=== PATIENT | male | born 1975 | race Hispanic/Latino ===

== ENCOUNTER 2019-04-30 23:05 | Emergency (ER) | payer BC ==
[~2019-04-30] VITALS: Ht 170.2 cm; Wt 109.1 kg
[~2019-04-30 23:05] MED LIST: AMOX/K CLAV875 M1 PO; ATENOLOL50 MG PO; BENICAR20 MG OR; ENALAPRIL MALE2.5 MG PO; LORTAB 1010 MG PO; PHENTERMINE H37.5 M1 PO; PRINIVIL5 MG PO; ULTRAM50 M1 PO; ULTRAM50 MG OR
[2019-04-30] MEDS ORDERED: VERAPAMIL120 M1 PO (23:17)
[2019-05-01] MEDS ORDERED: CEPHALEXIN500 M1 PO (00:01)
[2019-05-01] MEDS ORDERED: LORTAB 1010 MG PO (00:01)
[2019-05-01] MEDS ORDERED: BACTRIM DS1 TAB PO (00:01)
[2019-05-01 00:20] VITALS: BP 170/92
== END 2019-05-01 00:22 | disposition home or self-care (01) | DRG 603 ==
LOC: ED 23:05
PROC: 0H96XZZ Drainage of Back Skin, External Approach (ICD-10-PCS; principal; 2019-04-30)
DX: L02.212 Cutaneous abscess of back [any part, except buttock and flank] (principal); I10 Essential (primary) hypertension

== ENCOUNTER 2019-05-01 19:48 | Emergency (ER) | payer BC ==
[~2019-05-01] VITALS: Ht 170.2 cm; Wt 113.0 kg
[~2019-05-01 19:48] MED LIST changes: +BACTRIM DS1 TAB PO; +CEPHALEXIN500 M1 PO; +VERAPAMIL120 M1 PO
[2019-05-01 20:41] VITALS: BP 100/66
== END 2019-05-01 20:45 | disposition home or self-care (01) | DRG 951 ==
LOC: ED 19:48
DX: Z48.01 Encounter for change or removal of surgical wound dressing (principal); I10 Essential (primary) hypertension

== ENCOUNTER 2019-05-03 12:39 | Emergency (ER) | payer BC ==
[~2019-05-03] VITALS: Ht 170.2 cm; Wt 112.0 kg
[2019-05-03] MEDS ORDERED: CLEOCIN300 MG PO (13:30)
[2019-05-03 13:35] VITALS: BP 159/98
== END 2019-05-03 13:35 | disposition home or self-care (01) | DRG 951 ==
LOC: ED 12:39
DX: Z48.01 Encounter for change or removal of surgical wound dressing (principal); I10 Essential (primary) hypertension

== ENCOUNTER 2019-11-03 | Emergency (ER) | payer BC ==
[~2019-11-03] MED LIST changes: +CLEOCIN300 MG PO
[2019-11-03] MEDS ORDERED: ATENOLOL50 MG PO (20:13)
== END 2019-11-03 22:17 | disposition home or self-care (01) | DRG 153 ==
DX: J06.9 Acute upper respiratory infection, unspecified (principal); I10 Essential (primary) hypertension

== ENCOUNTER 2020-05-08 04:26 | Emergency (ER) | payer BC ==
[~2020-05-08] VITALS: Ht 170.2 cm; Wt 104.5 kg
[2020-05-08 05:51] LABS: HEMATOCRIT 45.9 % (39.0-50.0); HEMOGLOBIN 15.9 g/dl (14.0-18.0); IMMATURE GRANULOCYTES 0.2 % (0.0-5.0); MEAN CELL VOLUME 95.4 fL CALC (80.0-100.0); MEAN CORPUSCULAR HGB 33.1 pG CALC (26.0-32.0); MEAN CORPUSCULAR HGB CONC 34.6 g/dL CAL (32.0-36.0); NEUT# 2.46 thou/uL (1.82-7.42); RED BLOOD COUNT 4.81 mill/uL (4.70-6.10); RED CELL DISTRI WIDTH 11.9 % (11.5-15.5)
[2020-05-08 05:59] LABS: ANION GAP 11 (6-22 (CALC)); BILIRUBIN, TOTAL 0.5 mg/dL (0.0-1.4); BUN 16 mg/dL (9-20); BUN/CREATININE RATIO 26 (12-20 (CALC)); CARBON DIOXIDE 25 mmol/l (22-30); CHLORIDE 102 mmol/l (95-108); CREATININE 0.6 mg/dL (0.7-1.3); GFR > 60 ML/MIN (>=60 (CALC)); GFR FOR AFR.AMER. > 60 ML/MIN (>=60 (CALC)); POTASSIUM 3.6 mmol/l (3.5-5.1); SODIUM 134 mmol/l (137-146); TOTAL PROTEIN 7.4 g/dL (6.3-8.2)
[2020-05-08 06:07] LABS: ACT PARTIAL THROMBO TIME 25.4 SECONDS (20.0-32.5); INTERNATIONAL NORMALIZED RATIO 1.1 RATIO (0.7-1.3); PROTHROMBIN TIME 11.1 SECONDS (9.0-12.5)
[2020-05-08 06:16] LABS: ALKALINE PHOSPHATASE 158 u/l (38-126); SGOT/AST 151 u/l (17-59)
[2020-05-08] MEDS ORDERED: MAXZIDE-25MG1 COMBO PO (06:31)
[2020-05-08] MEDS ORDERED: METFORMIN HCL1000 M1 PO (06:31)
[2020-05-08] MEDS ORDERED: AMOXICILLIN500 MG PO (06:31)
[2020-05-08] MEDS ORDERED: TENORMIN PO (06:31)
[2020-05-08] MEDS ORDERED: GLUCOSE METER T1 TES TOP ×2 (07:24)
[2020-05-08 07:29] VITALS: BP 154/96
== END 2020-05-08 07:32 | disposition home or self-care (01) | DRG 305 ==
LOC: ED 04:26
PROVIDERS: Family Medicine
PROC: 2Y41X5Z Packing of Nasal Region using Packing Material (ICD-10-PCS; principal; 2020-05-08)
DX: I16.0 Hypertensive urgency (principal); R04.0 Epistaxis; I10 Essential (primary) hypertension; K70.10 Alcoholic hepatitis without ascites

== ENCOUNTER 2020-05-11 09:37 | Emergency (ER) | payer BC ==
[~2020-05-11] VITALS: Ht 170.2 cm; Wt 101.5 kg
[~2020-05-11 09:37] MED LIST changes: +AMOXICILLIN500 MG PO; +GLUCOSE METER T1 TES TOP; +MAXZIDE-25MG1 COMBO PO; +METFORMIN HCL1000 M1 PO; +TENORMIN PO
[2020-05-11 09:59] VITALS: BP 166/89
== END 2020-05-11 09:59 | disposition home or self-care (01) | DRG 951 ==
LOC: ED 09:37
DX: Z48.00 Encounter for change or removal of nonsurgical wound dressing (principal); I10 Essential (primary) hypertension

== ENCOUNTER 2021-04-12 20:52 | Emergency (ER) | payer BC ==
[~2021-04-12] VITALS: Ht 170.2 cm; Wt 114.0 kg
[2021-04-12] MEDS ORDERED: CLARITIN10 M1 PO (22:07)
[2021-04-12] MEDS ORDERED: AMOXICILLIN500 MG PO (22:07)
[2021-04-12 22:22] VITALS: BP 157/87
== END 2021-04-12 22:22 | disposition home or self-care (01) | DRG 153 ==
LOC: ED 20:52
DX: J02.9 Acute pharyngitis, unspecified (principal); I10 Essential (primary) hypertension; Z20.822 Contact with and (suspected) exposure to COVID-19

== ENCOUNTER 2021-05-13 23:19 | Emergency (ER) | payer SELFPAY ==
[~2021-05-13 23:19] MED LIST changes: +CLARITIN10 M1 PO
[2021-05-14] MEDS ORDERED: ATENOLOL50 MG PO (00:27)
[2021-05-14] MEDS ORDERED: [UNRECOGNIZED DRUG - REMARK] PO (00:29)
[2021-05-14 02:15] VITALS: BP 129/94
== END 2021-05-14 02:20 | disposition home or self-care (01) | DRG 605 ==
LOC: ED 23:19
PROC: 0HQLXZZ Repair Left Lower Leg Skin, External Approach (ICD-10-PCS; principal; 2021-05-14)
DX: S81.812A Laceration without foreign body, left lower leg, initial encounter (principal); I10 Essential (primary) hypertension; W25.XXXA Contact with sharp glass, initial encounter; Y93.89 Activity, other specified; Y92.009 Unspecified place in unspecified non-institutional (private) residence as the place of occurrence of the external cause

== ENCOUNTER 2022-03-10 18:41 | Emergency (ER) | payer BC ==
[~2022-03-10] VITALS: Ht 170.2 cm; Wt 109.0 kg
[~2022-03-10 18:41] MED LIST changes: +[UNRECOGNIZED DRUG - REMARK] PO
[2022-03-10] MEDS ORDERED: ALLOPURINOL300 MG PO (19:41)
[2022-03-10 20:30] LABS: ALBUMIN 3.8 g/dL (3.2-5.0); ALKALINE PHOSPHATASE 122 u/l (38-126); ANION GAP 14 (6-22 (CALC)); BILIRUBIN, TOTAL 0.3 mg/dL (0.0-1.4); BUN 20 mg/dL (9-20); BUN/CREATININE RATIO 27 (12-20 (CALC)); CARBON DIOXIDE 24 mmol/l (22-30); CHLORIDE 100 mmol/l (95-108); CREATININE 0.7 mg/dL (0.7-1.3); GFR FOR AFR.AMER. > 60 ML/MIN (>=60 (CALC)); GFR OTHER RACES > 60 ML/MIN (>=60 (CALC)); POTASSIUM 4.1 mmol/l (3.5-5.1); SGOT/AST 69 u/l (17-59); SODIUM 134 mmol/l (137-146); TOTAL PROTEIN 7.2 g/dL (6.3-8.2)
[2022-03-10] MEDS ORDERED: INDOMETHACIN75 MG PO (20:44)
[2022-03-10 20:50] VITALS: BP 130/97
== END 2022-03-10 21:01 | disposition home or self-care (01) | DRG 554 ==
LOC: ED 18:41
PROVIDERS: Family Medicine
DX: M10.061 Idiopathic gout, right knee (principal); E11.65 Type 2 diabetes mellitus with hyperglycemia; I10 Essential (primary) hypertension; Z79.84 Long term (current) use of oral hypoglycemic drugs

== ENCOUNTER 2022-03-25 21:58 | Observation (INO) | payer BC ==
[~2022-03-25] VITALS: Ht 170.2 cm; Wt 109.1 kg
[~2022-03-25 21:58] MED LIST changes: +ALLOPURINOL300 MG PO; +INDOMETHACIN75 MG PO
[2022-03-25 22:41] VITALS: BP 134/96
[2022-03-25 22:49] VITALS: BP 116/87
[2022-03-25 23:01] VITALS: BP 133/94
[2022-03-25 23:09] LABS: IMMATURE GRANULOCYTES 0.2 % (0.0-5.0); MEAN CELL VOLUME 95.7 fL CALC (80.0-100.0); MEAN CORPUSCULAR HGB 33.7 pG CALC (26.0-32.0); MEAN CORPUSCULAR HGB CONC 35.2 g/dL CAL (32.0-36.0); NEUT# 2.64 thou/uL (1.82-7.42); RED BLOOD COUNT 3.92 mill/uL (4.70-6.10)
[2022-03-25 23:16] VITALS: BP 132/88
[2022-03-25 23:26] LABS: HEMATOCRIT 37.5 % (39.0-50.0); HEMOGLOBIN 13.2 g/dl (14.0-18.0)
[2022-03-25 23:31] VITALS: BP 125/79
[2022-03-25 23:43] LABS: ALBUMIN 4.1 g/dL (3.2-5.0); ALKALINE PHOSPHATASE 83 u/l (38-126); ANION GAP 13 (6-22 (CALC)); BUN 12 mg/dL (9-20); BUN/CREATININE RATIO 13 (12-20 (CALC)); CARBON DIOXIDE 22 mmol/l (22-30); CHLORIDE 106 mmol/l (95-108); GFR FOR AFR.AMER. > 60 ML/MIN (>=60 (CALC)); GFR OTHER RACES > 60 ML/MIN (>=60 (CALC)); SODIUM 136 mmol/l (137-146); TOTAL PROTEIN 7.5 g/dL (6.3-8.2)
[2022-03-25 23:44] LABS: BILIRUBIN, TOTAL 0.6 mg/dL (0.0-1.4); SGOT/AST 122 u/l (17-59)
[2022-03-25 23:54] LABS: MYOGLOBIN 28 ng/mL (0 - 121)
[2022-03-26] VITALS (11 sets, daily range): BP systolic 119–144; BP diastolic 82–105
== END 2022-03-26 11:34 | disposition home or self-care (01) | DRG 149 ==
LOC: ED 21:58 → ED-I 03-26 00:13 → ED 03-26 00:28 → MS2 03-26 00:29
PROVIDERS: Family Medicine; ADMIT Internal Medicine; ATTEND Internal Medicine
DX: R42 Dizziness and giddiness (principal); R90.89 Other abnormal findings on diagnostic imaging of central nervous system; I10 Essential (primary) hypertension; E11.9 Type 2 diabetes mellitus without complications; M10.9 Gout, unspecified; Z79.84 Long term (current) use of oral hypoglycemic drugs
CPT/HCPCS: G0378